=== PATIENT | female | born 1990 | race Two or more races ===

== ENCOUNTER 2016-06-18 13:02 | Emergency (ER) | payer MEDICAID, OTHER ==
[2016-06-18 13:22] VITALS: BP 118/71
--- NOTE | 2016-06-18 13:45 | EDM.PDOC ---
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 She has had some bleeding prior to this but now has heavy bleeding and cramping. Has not had tissue pass that he knows of. Pt is here visiting from [place] and speaks no Uzbek. Truck Driver Helper is through [employer]. Has a lot of cramps at this me. Concerned that it is more blood than she expected. Symptom Onset Date: 06/17/16 Timing/Duration: Reports: Day(s): Quality: Reports: other (cramping) Severity: severe Improves with: Reports: None Associated Symptoms: Reports: vaginal bleeding, vaginal clots, large amount. Denies: vaginal tissue - Related Data Allergies/ADRs: Allergies Allergy/AdvReac Type Severity Reaction Status Date / Time No Known Allergies Allergy Verified 06/18/16 13:29 Home Meds: Home Meds Pnv No.122/Iron/Folic Acid [ Multi Tablet] 1 tab PO DAILY 06/18/16 [ History] Past Medical History - Past Health History Medical/Surgical History: Denies Medical/Surgical History Social & Family History - Tobacco Use Smoking Status *Q: Never Smoker ED ROS GENERAL - Review of Systems Review Of Systems: See Below Constitutional: Denies: fever, chills Respiratory: Denies: shortness of breath Cardiovascular: Denies: Chest pain GI/Abdominal: Reports: Abdominal pain : Reports: other (see HPI) Musculoskeletal: Reports: no symptoms Skin: Denies: rash Neurological: Denies: dizziness, headache Psychiatric: Denies: Anxiety ED EXAM - Physical Exam Exam: See Below Exam Limited By: No limitations General Appearance: alert, moderate distress Head: atraumatic, normocephalic Neck: normal inspection, supple, full range of motion Respiratory/Chest: no respiratory distress, lungs clear, normal breath sounds Cardiovascular: regular rate, rhythm, no edema, no murmur GI/Abdominal: normal bowel sounds, soft, non tender (Female) Exam: Other (pelvic exam is not done due to the amount of blood present and we will be performing vaginal US.) Back Exam: normal inspection Extremities: normal inspection, normal range of motion, no pedal edema Neurological: alert, oriented Psychiatric: normal affect Skin Exam: Warm, Dry Course - Vital Signs Last Recorded V/S: Last Vital Signs Temp 97.3 F 06/18/16 13:11 Pulse 102 H 06/18/16 13:11 Resp 18 06/18/16 13:11 BP 118/71 06/18/16 13:11 Pulse Ox 97 06/18/16 13:11 - Orders/Labs/Meds Labs: Laboratory Tests 06/18/16 06/18/16 Range/Units 14:14 14:14 WBC 9.9 (5.0-10.0) 10^3/uL RBC 4.01 (4.00-5.50) 10^6/uL Hgb 11.9 L (12.0-16.0) g/dL Hct 36.9 L (37.0-47.0) % MCV 92.0 (82.0-94.0) fL MCH 29.7 (27.0-32.0) pg MCHC 32.2 L (33.0-38.0) g/dL RDW Coeff of Raine 13.9 (11.0-15.0) % Plt Count 298 (150-400) 10^3/uL Neut % (Auto) 77.3 (35-85) % Lymph % (Auto) 16.5 (10-55) % [place] % (Auto) 5.2 (0-16) % Eos % (Auto) 0.9 (0-5) % Baso % (Auto) 0.1 (0-3) % Neut # 7.62 H (1.80-7.00) 10^3/uL Lymph # 1.63 (1.00-4.80) 10^3/uL [place] # 0.51 (0.00-0.80) 10^3/uL Eos # 0.09 (0.00-0.45) 10^3/uL Baso # 0.01 10^3/uL Sodium 141 (136-145) mEq/L Potassium 3.9 (3.5-5.0) mEq/L Chloride 106 (98-106) mEq/L Carbon Dioxide 28 (21-32) mmol/L BUN 9 (7-18) mg/dL Creatinine 0.7 (0.6-1.0) mg/dL Est Cr Clr Drug Dosing 95.48 mL/min Estimated GFR (MDRD) > 60 (>=60) mL/min Glucose 155 H (75-99) mg/dL Calcium 8.7 (8.4-10.1) mg/dL Meds: Medications Discontinued Medications Generic Name Dose Route Start Last Admin Trade Name Selena PRN Reason Stop Dose Admin Ketorolac Tromethamine 60 mg 06/18/16 14:59 06/18/16 15:05 Toradol IM 06/18/16 15:00 60 mg ONETIME ONE Administration Ketorolac Tromethamine Confirm 06/18/16 14:52 Toradol Administered 06/18/16 14:53 Dose 60 mg .ROUTE .STK-MED ONE - Re-Assessments/Exams Free Text/Narrative Re-Assessment/Exam: 06/18/16 15:00 In to discuss the results of the Ultrasound. Cervix is now open and products of conception are passing through. Explained that she would have cramps and that the pain meds would help but that it would take time. does voice understanding and relays it to the pt. Departure - Departure Time of Disposition: 15:02 Disposition: Home, Self-Care 01 Condition: good Clinical Impression: Complete Referrals: PCP,None [Primary Care Provider] - Forms: ED Department Discharge Additional Instructions: [place] 5/325 mg - 1-2 tabs every 4 hours as needed for pain and cramps Recheck if any new concerns or if bleeding becomes severe Expect some tissue to pass for the next 24 hours and then bleeding should decrease. Follow up with TECHNICAL SUPPORT DIRECTOR when returning home. - Problem List & Annotations (1) Complete SNOMED Code(s): 294851007 Code(s): O03.9 - COMPLETE OR UNSP SPONTANEOUS WITHOUT COMPLICATION Status: Acute Priority: High - Problem List Review Problem List Initiated/Reviewed/Updated: Yes
[2016-06-18 14:29] LABS: CHLORIDE,CL 106 mEq/L (98-106); SODIUM,NA 141 mEq/L (136-145)
[2016-06-18] MEDS ORDERED: Ketorolac 60 MG/2 ML SDV ONE (14:52)
[2016-06-18] MEDS ORDERED: Ketorolac 60 MG/2 ML SDV IM ONE (14:59)
== END 2016-06-18 15:15 | disposition home or self-care (01) ==
LOC: CC.ED 13:02
DX: O03.9 Complete or unspecified spontaneous abortion without complication (principal)
CPT/HCPCS: 36415; 76830; 80048; 85025; 96372; 99284; J1885

== ENCOUNTER 2016-09-19 14:14 | Emergency (ER) | payer MEDICAID, OTHER ==
[2016-09-19 14:22] VITALS: BP 140/84
== END 2016-09-19 14:45 | disposition other institution (70) ==
LOC: CC.ED 14:14
DX: Z53.21 Procedure and treatment not carried out due to patient leaving prior to being seen by health care provider (principal)

== ENCOUNTER 2017-10-10 19:57 | Emergency (ER) | payer BC ==
[2017-10-10 20:18] VITALS: BP 131/79
--- NOTE | 2017-10-10 20:59 | EDM.PDOC ---
ED HPI GENERAL MEDICAL PROBLEM - General Chief Complaint: Head Injury Stated Complaint: fall and hit head Time Seen by Provider: 10/10/17 20:00 Source of Information: Reports: Patient History Limitations: Reports: Language Barrier (Reeling Machine Operator used with [employer] ) - History of Present Illness INITIAL COMMENTS - FREE TEXT/NARRATIVE: This patient is a 27 year old female that presents to the ER via EMS. Patient arrives and floor tiling professional is used via [employer]. The patient reports she was in the pool, came inside and was giving the children a bath. She reports she was standing, then the next thing she remembers was laying on the carpet in the bedroom. The patient report having headache, neck pain, left sided chest pain, nausea, lightheaded. The patient denies v, d, f, cough, congestion, drainage, soa, abd pain, urinary/bowel changes. She reports LMP 2 days ago. Patient is awake. She is alert and oriented. I recommend head ct, labs, urine, ekg since we do not now cause of the fall or she had syncope. Onset: Today Onset Date: 10/10/17 Location: Reports: Head, Neck, Chest Quality: Reports: Ache Severity: Mild Improves with: Reports: None Worsens with: Reports: None Associated Symptoms: Reports: Chest Pain, Headaches, Nausea/Vomiting. Denies: Confusion, Cough, cough w sputum, Diaphoresis, Fever/Chills, Loss of Appetite, Malaise, Rash, Seizure, Shortness of Breath, Weakness - Related Data Allergies Allergy/AdvReac Type Severity Reaction Status Date / Time turkey Allergy Cannot Verified 09/19/16 14:23 Remember ham Allergy Cannot Uncoded 09/19/16 14:23 Remember Home Meds: Home Meds . 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 One child was born premature. She also had a seizure while she was with her last and preclampsia. Neurological History: Reports: Seizure - Past Surgical History Female Surgical History: Reports: Section ED ROS GENERAL - Review of Systems Review Of Systems: See Below Constitutional: Reports: No Symptoms HEENT: Reports: No Symptoms Respiratory: Reports: No Symptoms Cardiovascular: Reports: Lightheadedness Endocrine: Reports: No Symptoms GI/Abdominal: Reports: Nausea : Reports: No Symptoms Musculoskeletal: Reports: Neck Pain, Other (left chest pain) Skin: Reports: No Symptoms Neurological: Reports: Headache Psychiatric: Reports: No Symptoms Hematologic/Lymphatic: Reports: No Symptoms Immunologic: Reports: No Symptoms ED EXAM, HEAD INJURY - Physical Exam Exam: See Below Exam Limited By: Language Barrier (Reeling Machine Operator used for translation.) General Appearance: Alert, WD/WN, No Apparent Distress Head: Atraumatic, Normocephalic. No: Scalp Lacerations, Scalp Swelling, Scalp Abrasions, Scalp Ecchymosis, Scalp Hematoma, Scalp Tenderness, Active Bleeding, Facial Abrasions, Facial Ecchymosis, Facial Lacerations, Facial Swelling, Sinus Tenderness, Facial Tenderness, Raccoon Eyes Nexus Criteria: No: Posterior, Midline Cervical Tenderness, Evidence of Intoxication, Altered Level of Consciousness, Focal Neurological Deficit, Painful Distraction Injuries Eyes: Bilateral Eye: EOMI, Normal Inspection, PERRL Ears: Normal External Exam, Normal Canal, Hearing Grossly Normal, Normal TMs Nose: Normal Inspection, Normal Mucousa, No Blood Throat/Mouth: Normal Inspection, Normal Lips, Normal Teeth, Normal Gums, Normal Oropharynx, Normal Voice, No Airway Compromise Neck: Non-Tender, Full Range of Motion, Normal Alignment, Normal Inspection Respiratory: No Respiratory Distress, Lungs Clear, Normal Breath Sounds, No Accessory Muscle Use, Other (left atnerior upper chest wall tenderness mild on palpation. ). No: Respiratory Distress, Decreased Breath Sounds, Wheezing, Accessory Muscle Use, Retractions, Splinting Cardiovascular: Normal Peripheral Pulses, Regular Rate, Rhythm, No Edema, No Gallop, No JVD, No Murmur, No Rub GI/Abdominal Exam: Normal Bowel Sounds, Soft, Non-Tender, No Organomegaly, No Distention, No Abnormal Bruit, No Mass, Pelvis Stable (Female) Exam: Deferred Rectal (Female) Exam: Deferred Back Exam: Normal Inspection, Full Range of Motion. No: CVA Tenderness (L), CVA Tenderness (R), Decreased Range of Motion, Muscle Spasm, Paraspinal Tenderness, Vertebral Tenderness Extremities: Normal Inspection, Normal Range of Motion, Non-Tender, No Pedal Edema, Normal Capillary Refill Neurologic: family nurse II-XII nml As Tested, No Motor/Sensory Deficits, Alert, Normal Mood/Affect, Oriented x 3 Skin: Normal Color, Warm/Dry - [place] Coma Score Best Eye Response ([place]): (4) Open Spontaneously Best Verbal Response ([place]): (5) Oriented Best Motor Response ([place]): (6) Obeys Commands Course - Vital Signs Last Recorded V/S: Last Vital Signs Temp 97.0 F 10/10/17 20:00 Pulse 94 10/10/17 20:00 Resp 20 10/10/17 20:00 BP 131/79 10/10/17 20:00 Pulse Ox 97 10/10/17 20:00 - Re-Assessments/Exams Free Text/Narrative Re-Assessment/Exam: 10/10/17 20:59 After I had discussed with the patient the testing I would order. She now reports that she feels better and would like to go home. She reports that she does not have insurance and would like to leave now. I educated the patient about financial assistance and how she could talk to someone else about this on Thursday. The patient again says she feels much better and would like to go home. The patient is alert and oriented. The patient is educated about my recommendations for care, but still would like to go home. I educated the patient about possible outcomes like head bleeds, paralysis, may result. She understands and would like to leave AMA. Myself, Jerrica Valerio RN, patient significant other, patient, patient two children, in the room. The floor tiling professional also witness and translated all of this to the patient. We do not have AMA forms available. Patient left AMA. Departure - Departure Time of Disposition: 20:58 Disposition: Against Medical Advice 07 Condition: Undetermined Clinical Impression: Left against medical advice - Discharge Information Forms: ED Department Discharge Additional Instructions: Return as needed - Assessment/Plan Plan: PLEASE SEE RN NOTE FOR PFSH.
== END 2017-10-10 20:30 | disposition left against medical advice (07) ==
LOC: CC.ED 19:57
DX: Z53.20 Procedure and treatment not carried out because of patient's decision for unspecified reasons (principal)
CPT/HCPCS: 99283

== ENCOUNTER 2018-05-08 18:07 | Emergency (ER) | payer BC ==
[2018-05-08] MEDS ORDERED: Ciprofloxacin 500 MG Tab PO ONE (18:08)
[2018-05-08] MEDS ORDERED: Ondansetron 4 MG Tab.DIS PO ONE (18:08)
[2018-05-08] MEDS ORDERED: Sodium Chloride 0.9% 1,000 ML IV ONE (18:23)
[2018-05-08] MEDS ORDERED: Ondansetron 4 MG/2 ML SDV IVPUSH STA (18:24)
[2018-05-08 18:48] LABS: CHLORIDE,CL 102 mEq/L (98-106); SODIUM,NA 140 mEq/L (136-145)
[2018-05-08] MEDS ORDERED: cefTRIAXone 2 GM Vial IVPUSH ONE (19:09)
[2018-05-08] MEDS ORDERED: Ketorolac 30 MG/ML SDV IVPUSH PRN (19:14)
--- NOTE | 2018-05-08 19:32 | EDM.PDOC ---
ED HPI GENERAL MEDICAL PROBLEM - General Chief Complaint: Abdominal Pain Stated Complaint: ABD PAIN, PAIN WITH URINATION, N/V/D Time Seen by Provider: 05/08/18 18:55 Source of Information: Reports: Patient History Limitations: Reports: No Limitations - History of Present Illness INITIAL COMMENTS - FREE TEXT/NARRATIVE: Bettye is a 27 year old female who presents to the ED with c/o bilateral flank pain, fever, and burning with urination. She reports she was in [place] visiting family the past month. Reports she was sick while still in [place] and was seen there with c/o abdominal pain, diarrhea, and vomiting. She reports she has been taking a medication that appears to be ciprofloxacin from [place]. Reports initially she was having lots of diarrhea and vomiting, but this has improved the past few days. Reports the past 10 days she has had burning with urination and urinary frequency. Now reports she has gotten bilateral flan pain, R>L. Has had fevers at home and generalized malaise . History limited due to language barrier. Young son available for translation and is able to provide adequate translation. Onset Date: 04/29/18 Duration: Getting Worse Location: Reports: Abdomen (bilateral flank) Quality: Reports: Ache Severity: Severe Improves with: Reports: None Worsens with: Reports: None Associated Symptoms: Reports: Cough, Fever/Chills, Headaches, Loss of Appetite, Malaise, Nausea/Vomiting, Weakness. Denies: Confusion, Chest Pain, cough w sputum, Diaphoresis, Rash, Seizure, Shortness of Breath, Syncope Treatments SCREENING SPECIALIST: Reports: Acetaminophen, Other (see below) (Medications from [place]- ciprofloxacin) Abdominal Pain Score (Numeric/FACES): 8 - Related Data Allergies Allergy/AdvReac Type Severity Reaction Status Date / Time turkey Allergy Cannot Verified 05/08/18 18:16 Remember ham Allergy Cannot Uncoded 05/08/18 18:16 Remember Home Meds: Home Meds Ciprofloxacin [Ciprofloxacin HCl] 500 mg PO BID 9 Days #18 tab 05/08/18 [Rx] Ondansetron [Ondansetron ODT] 8 mg PO Q8H PRN #20 tab.rapdis 05/08/18 [Rx] Ciprofloxacin HCl [Cipro] 500 mg PO TID 05/09/18 [History] Past Medical History - Past Health History Medical/Surgical History: Denies Medical/Surgical History 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 One child was born premature. She also had a seizure while she was with her last and preclampsia. Neurological History: Reports: Seizure - Past Surgical History Female Surgical History: Reports: Section Social & Family History - Tobacco Use Smoking Status *Q: Never Smoker - Caffeine Use Caffeine Use: Reports: None ED ROS GENERAL - Review of Systems Review Of Systems: See Below Constitutional: Reports: Fever, Chills, Malaise, Weakness, Fatigue, Decreased Appetite HEENT: Reports: No Symptoms Respiratory: Reports: Cough. Denies: Shortness of Breath, Wheezing, Pleuritic Chest Pain, Sputum Cardiovascular: Reports: No Symptoms Endocrine: Reports: Fatigue GI/Abdominal: Reports: Abdominal Pain, Diarrhea, Decreased Appetite, Nausea, Vomiting. Denies: Black Stool, Bloody Stool : Reports: Dysuria, Flank Pain, Frequency, Urgency. Denies: Hematuria Musculoskeletal: Reports: No Symptoms Skin: Reports: No Symptoms Neurological: Reports: Headache, Weakness Psychiatric: Reports: No Symptoms Hematologic/Lymphatic: Reports: No Symptoms Immunologic: Reports: No Symptoms ED EXAM, RENAL/ - Physical Exam Exam: See Below Exam Limited By: Language Barrier General Appearance: Alert, WD/WN, Mild Distress Eye Exam: Bilateral Eye: EOMI, Normal Fundi, Normal Inspection, PERRL Throat/Mouth: Normal Inspection, Normal Lips, Normal Teeth, Normal Gums, Normal Oropharynx, Normal Voice, No Airway Compromise Head: Atraumatic, Normocephalic Neck: Normal Inspection, Supple, Non-Tender, Full Range of Motion Respiratory/Chest: No Respiratory Distress, Lungs Clear, Normal Breath Sounds, No Accessory Muscle Use, Chest Non-Tender Cardiovascular: Normal Peripheral Pulses, Regular Rate, Rhythm, No Edema, No Gallop, No JVD, No Murmur, No Rub GI/Abdominal: Normal Bowel Sounds, Soft, No Organomegaly, No Distention, No Mass , Tender (generalized) Back Exam: Normal Inspection, Full Range of Motion, CVA Tenderness (L), CVA Tenderness (R) Extremities: Normal Inspection, Normal Range of Motion, Non-Tender, Normal Capillary Refill, No Pedal Edema Neurological: Alert, Oriented, CN II-XII Intact, Normal Cognition, Normal Gait, Normal Reflexes, No Motor/Sensory Deficits Psychiatric: Normal Affect, Normal Mood Skin Exam: Warm, Dry, Intact, Normal Color, No Rash Lymphatic: No Adenopathy Course - Vital Signs Last Recorded V/S: Last Vital Signs Temp 99.5 F 05/08/18 21:20 Pulse 99 05/08/18 21:20 Resp 20 05/08/18 21:20 BP 102/58 L 05/08/18 21:20 Pulse Ox 98 05/08/18 21:20 - Orders/Labs/Meds Orders: Active Orders 24 hr Category Date Time Status CULTURE URINE [RM] Routine Lab 05/08/18 18:43 Results Labs: Laboratory Tests 05/08/18 05/08/18 05/08/18 Range/Units 18:23 18:23 18:23 WBC 10.8 H (5.0-10.0) 10^3/uL RBC 4.09 (4.00-5.50) 10^6/uL Hgb 11.8 L (12.0-16.0) g/dL Hct 37.8 (37.0-47.0) % MCV 92.4 (82.0-94.0) fL MCH 28.9 (27.0-32.0) pg MCHC 31.2 L (33.0-38.0) g/dL RDW Coeff of Raine 14.6 (11.0-15.0) % Plt Count 249 (150-400) 10^3/uL Neut % (Auto) 79.4 (35-85) % Lymph % (Auto) 10.2 (10-55) % [place] % (Auto) 10.0 (0-16) % Eos % (Auto) 0.3 (0-5) % Baso % (Auto) 0.1 (0-3) % Neut # (Auto) 8.56 H (1.80-7.00) 10^3/uL Lymph # (Auto) 1.10 (1.00-4.80) 10^3/uL [place] # (Auto) 1.08 H (0.00-0.80) 10^3/uL Eos # (Auto) 0.03 (0.00-0.45) 10^3/uL Baso # (Auto) 0.01 10^3/uL Sodium 140 (136-145) mEq/L Potassium 4.0 (3.5-5.0) mEq/L Chloride 102 (98-106) mEq/L Carbon Dioxide 30 (21-32) mmol/L BUN 6 L (7-18) mg/dL Creatinine 0.6 (0.6-1.0) mg/dL Est Cr Clr Drug Dosing 104.40 mL/min Estimated GFR (MDRD) > 60 (>=60) mL/min Glucose 94 (75-99) mg/dL Calcium 8.8 (8.4-10.1) mg/dL Total Bilirubin 0.6 (0.0-1.0) mg/dL AST 17 (15-37) U/L ALT 25 (12-78) U/L Alkaline Phosphatase 70 (46-116) U/L C-Reactive Protein 27.9 H (0.2-0.8) mg/dL Total Protein 7.5 (6.4-8.2) g/dL Albumin 3.4 (3.4-5.0) g/dL Urine Color [place] (YELLOW) Urine Appearance Cloudy (CLEAR) Urine pH 6.0 (4.5-8.0) Ur Specific [place] 1.010 (1.003-1.020) Urine Protein 100 H (NEGATIVE) mg/dL Urine Glucose (UA) 250 H (NEGATIVE) mg/dL Urine Ketones Trace H (NEGATIVE) mg/dL Urine Occult Blood Trace-intact H (NEGATIVE) Urine Nitrite Positive H (NEGATIVE) Urine Bilirubin Negative (NEGATIVE) Urine Urobilinogen 2.0 H (0.2-1.0) EU/dL Ur Leukocyte Esterase Large H (NEGATIVE) Urine RBC Not seen (0-5) /HPF Urine WBC 50-75 H (0-5) /HPF Ur Squamous Epith Cells Few H (NOT SEEN) /HPF Urine Bacteria Few H (NOT SEEN) /HPF Urinalysis Comment Meds: Medications Discontinued Medications Generic Name Dose Route Start Last Admin Trade Name Freq PRN Reason Stop Dose Admin Acetaminophen 1,000 mg 05/08/18 19:50 05/08/18 19:54 Tylenol Extra Strength PO 05/08/18 19:51 1,000 mg ONETIME ONE Administration Ceftriaxone Sodium 2 gm 05/08/18 19:09 05/08/18 19:12 Rocephin IVPUSH 05/08/18 19:10 2 gm ONETIME ONE Administration Ciprofloxacin 1 packet 05/08/18 21:32 05/08/18 22:04 Take Home: Ciprofloxacin 500 Mg, 2 Tab Pack PO 05/08/18 21:33 1 packet ONETIME ONE Administration Sodium Chloride 1,000 mls @ 999 mls/hr 05/08/18 18:23 05/08/18 18:47 Normal Saline IV 05/08/18 19:23 999 mls/hr .BOLUS ONE Administration Sodium Chloride 1,000 mls @ 250 mls/hr 05/08/18 20:00 05/08/18 19:55 Normal Saline IV 250 mls/hr ASDIRECTED RAJ Administration Ketorolac Tromethamine 30 mg 05/08/18 19:14 05/08/18 19:24 Toradol IVPUSH 05/13/18 19:14 30 mg Q6H PRN Administration Headache Ondansetron HCl 4 mg 05/08/18 18:24 05/08/18 18:47 Zofran IVPUSH 05/08/18 18:25 4 mg NOW STA Administration Ondansetron HCl 2 packet 05/08/18 22:23 05/08/18 22:43 Take Home: Ondansetron Odt 4 Mg, 2 Tab Pack PO 05/08/18 22:24 2 packet ONETIME ONE Administration Prochlorperazine Maleate 10 mg 05/08/18 21:32 05/08/18 21:55 Compazine PO 05/08/18 21:33 10 mg ONETIME ONE Administration - Re-Assessments/Exams Free Text/Narrative Re-Assessment/Exam: Patient initially given 1 L NS bolus, 2 g ceftriaxone, and 4 mg zofran. Continues to c/o headache. Was given 30 mg Toradol IV. Did report some improvement in pain, but headache continued. Did have low grade fever. Was then given Tylenol. Did opt to keep in extended ED for additional IV fluids as patient remained tachycardic. She had some continued nausea, so compazine was ordered. Addition liter of NS infused. Patient reported after this she was feeling much better. Reported her pain had improved. Pulse normal. Nausea improved. Discussed discharge recommendations, with use of son as detective homicide squad. Patient, , and son appeared to understand instructions. Advised close follow up Thursday if symptoms persist. They verbalized understanding and were agreeable to discharge home. Departure - Departure Time of Disposition: 21:31 Disposition: Home, Self-Care 01 Condition: Fair Clinical Impression: Pyelonephritis - Discharge Information *PRESCRIPTION DRUG MONITORING PROGRAM REVIEWED*: Not Applicable *COPY OF PRESCRIPTION DRUG MONITORING REPORT IN PATIENT KRYSTIAN: Not Applicable Prescriptions: Ciprofloxacin [Ciprofloxacin HCl] 500 mg PO BID 9 Days #18 tab Ondansetron [Ondansetron ODT] 8 mg PO Q8H PRN #20 tab.rapdis PRN Reason: Nausea Instructions: Pyelonephritis, Adult, [id number] Referrals: PCP,None [Primary Care Provider] - Forms: ED Department Discharge Additional Instructions: 1) Ciprofloxacin 500 mg orally every 12 hours x 10 days. Sent home with 2 pills. Remainder of dose at [facility]. STOP PRESCRIPTIONS FROM [facility]. 2) Zofran (ondansetron) every 8 hours as needed for nausea/vomiting 3) Alternate Tylenol and ibuprofen every 3 hours as needed for headache/pain 4) Heat to affected area as needed for comfort 5) Rest and push fluids 6) Follow up in clinic for recheck Thursday if symptoms are not improving - My Orders Last 24 Hours: My Active Orders 05/08/18 18:43 CULTURE URINE [RM] Routine - Assessment/Plan Last 24 Hours: My Active Orders 05/08/18 18:43 CULTURE URINE [RM] Routine
[2018-05-08] MEDS ORDERED: Acetaminophen 500 MG Tab PO ONE (19:50)
[2018-05-08] MEDS ORDERED: Sodium Chloride 0.9% 1,000 ML IV SCH (20:00)
[2018-05-08] MEDS ORDERED: Prochlorperazine 10 MG Tab PO ONE (21:32)
[2018-05-08] MEDS ORDERED: Take Home: Ciprofloxacin 500 MG Tab, 2 Tab Pack PO ONE (21:32)
[2018-05-08 21:56] VITALS: BP 102/58
[2018-05-08] MEDS ORDERED: Take Home: Ondansetron 4 MG Tab.DIS, 2 Tab Pack PO ONE (22:23)
== END 2018-05-08 22:55 | disposition home or self-care (01) ==
LOC: CC.ED 18:07
DX: N12 Tubulo-interstitial nephritis, not specified as acute or chronic (principal); Z91.018 Allergy to other foods
CPT/HCPCS: 36415; 80053; 81001; 85025; 86140; 87086; 87088; 87186; 96361; 96374; 96375; 99284; A9270-GY; J0696; J1885; J2405; J7030; Q0164

== ENCOUNTER 2019-07-21 13:06 | Observation (INO) | payer SELFPAY ==
[2019-07-21 14:13] LABS: CHLORIDE,CL 102 mEq/L (98-106); SODIUM,NA 139 mEq/L (136-145)
[2019-07-21] MEDS ORDERED: Barium Sulfate Oral Susp 450 ML Bottle PO ONE (14:41)
[2019-07-21] MEDS ORDERED: Iopamidol 755 Mg/ML 100 ML Bottle IVPUSH ONE (14:41)
[2019-07-21] MEDS ORDERED: Sodium Chloride 0.9% 1,000 ML IV ONE (14:45)
[2019-07-21] MEDS ORDERED: Ketorolac 30 MG/ML SDV IM PRN (16:25)
[2019-07-21] MEDS: Sodium Chloride 0.9% 1,000 ML IV SCH (17:07)
[2019-07-21] MEDS: cefTRIAXone 1 GM Vial IVPUSH SCH (17:08)
[2019-07-21] MEDS: Ondansetron 4 MG/2 ML SDV IV PRN (17:08)
[2019-07-21] MEDS: Morphine 2 MG/ML Syringe IVPUSH PRN (18:24)
[2019-07-21] MEDS: Ibuprofen 200 MG Tab PO PRN (20:12)
[2019-07-22] MEDS: Sodium Chloride 0.9% 1,000 ML IV SCH ×3 (01:11→23:19)
[2019-07-22] MEDS: Ondansetron 4 MG/2 ML SDV IV PRN ×3 (01:11→21:04)
[2019-07-22] MEDS: Morphine 2 MG/ML Syringe IVPUSH PRN (01:12)
[2019-07-22] MEDS: Acetaminophen 325 MG Tab PO PRN ×2 (06:55→16:16)
[2019-07-22] MEDS ORDERED: Ketorolac 30 MG/ML SDV IVPUSH PRN (08:56)
[2019-07-22] MEDS: Ibuprofen 200 MG Tab PO PRN ×2 (09:19→21:04)
--- NOTE | 2019-07-22 14:39 | PN ---
DATE: 07/22/2019 Bettye has done well since being here, feels much better. She has had a T-max of 99.7. She is no longer tachycardic. She is putting out adequate volumes of urine. We are still waiting on urine culture. Unfortunately, her UA was probably a little disguise given her Cipro use leading up to our visit. Nevertheless, she looks better. White count and CRP are down today. Her creatinine remains at 1.2. I did do an interview with her son on the phone. She feels better other than she has a headache today which is I think, a chronic issue for her. PHYSICAL EXAMINATION: GENERAL: On exam, she is pleasant and cooperative, does not appear in distress. HEENT: Benign. NECK: Supple. LUNGS: Lung sounds are clear. CARDIAC: Tones are regular. She continues with left flank pain but mild, and none on the right. ABDOMEN: Otherwise benign. ASSESSMENT: PYELONEPHRITIS. P: I did review the CT scan report. She has what appears to be bilateral streakiness of both kidneys consistent with a pyelo and no other gross abnormalities. We are going to treat her with some further fluids and IV antibiotics today and if she is doing well and CRP continues to trend down, home tomorrow. I would like to have a urine culture before discharge and she understands. CLEMENTINE/ALMA /[id number]
[2019-07-22] MEDS: cefTRIAXone 1 GM Vial IVPUSH SCH (16:55)
[2019-07-23 07:41] LABS: CHLORIDE,CL 104 mEq/L (98-106); SODIUM,NA 140 mEq/L (136-145)
[2019-07-23] MEDS ORDERED: Ondansetron 4 MG Tab.DIS PO ONE ×2 (09:00→15:24)
--- NOTE | 2019-07-23 09:54 | PCM.PN ---
- General Info Date of Service: 07/23/19 Functional Status: Reports: Pain Controlled (Abd pain, but improved since yesterday.), Tolerating Diet Pain Score: 3 - Review of Systems General: Reports: No Symptoms. Denies: Fever HEENT: Reports: No Symptoms Pulmonary: Reports: No Symptoms Cardiovascular: Reports: No Symptoms Gastrointestinal: Reports: Abdominal Pain (but, improved from yesterday.), Nausea. Denies: Constipation, Diarrhea, Vomiting Genitourinary: Reports: No Symptoms. Denies: Dysuria, Burning, Incontinence, Retention, Flank Pain Musculoskeletal: Reports: No Symptoms Skin: Reports: No Symptoms Neurological: Reports: No Symptoms Psychiatric: Reports: No Symptoms - Patient Data Vitals - Most Recent: Last Vital Signs Temp 99.1 F 07/23/19 08:00 Pulse 102 H 07/23/19 08:00 Resp 20 07/23/19 08:00 BP 120/79 07/23/19 08:00 Pulse Ox 100 07/23/19 08:00 Weight - Most Recent: 194 lb I&O - Last 24 Hours: Intake & Output 07/22/19 07/23/19 07/23/19 22:59 06:59 14:59 Intake Total 2545 1500 Output Total 2300 500 Balance 245 1000 Lab Results Last 24 Hours: Laboratory Results - last 24 hr 07/23/19 07/23/19 Range/Units 07:05 07:05 WBC 6.8 (5.0-10.0) 10^3/uL RBC 3.51 L (4.00-5.50) 10^6/uL Hgb 10.1 L (12.0-16.0) g/dL Hct 32.6 L (37.0-47.0) % MCV 92.9 (82.0-94.0) fL MCH 28.8 (27.0-32.0) pg MCHC 31.0 L (33.0-38.0) g/dL RDW Coeff of Raine 14.4 (11.0-15.0) % Plt Count 278 (150-400) 10^3/uL Neut % (Auto) 64.4 (35-85) % Lymph % (Auto) 25.4 (10-55) % [place] % (Auto) 8.7 (0-16) % Eos % (Auto) 1.2 (0-5) % Baso % (Auto) 0.3 (0-3) % Neut # (Auto) 4.38 (1.80-7.00) 10^3/uL Lymph # (Auto) 1.73 (1.00-4.80) 10^3/uL [place] # (Auto) 0.59 (0.00-0.80) 10^3/uL Eos # (Auto) 0.08 (0.00-0.45) 10^3/uL Baso # (Auto) 0.02 10^3/uL Sodium 140 (136-145) mEq/L Potassium 4.0 (3.5-5.0) mEq/L Chloride 104 (98-106) mEq/L Carbon Dioxide 29 (21-32) mmol/L BUN 6 L (7-18) mg/dL Creatinine 0.9 (0.6-1.0) mg/dL Est Cr Clr Drug Dosing 78.93 mL/min Estimated GFR (MDRD) > 60 (>=60) mL/min Glucose 107 H (75-99) mg/dL Calcium 8.1 L (8.4-10.1) mg/dL C-Reactive Protein 6.3 H (0.2-0.8) mg/dL Jose Results Last 24 Hours: Microbiology 07/21/19 15:28 Urine Culture - Final Urine, Voided 07/21/19 13:52 Genital Culture - Preliminary Vagina Med Orders - Current: Current Medications Acetaminophen (Tylenol) 650 mg PO Q4H PRN PRN Reason: Pain (Mild 1-3)/fever Last Admin: 07/22/19 16:16 Dose: 650 mg Ceftriaxone Sodium (Rocephin) 1 gm IVPUSH Q24H [facility] Last Admin: 07/22/19 16:55 Dose: 1 gm Sodium Chloride (Normal Saline) 1,000 mls @ 75 mls/hr IV ASDIRECTED [facility] Last Admin: 07/22/19 23:19 Dose: 75 mls/hr Ibuprofen (Motrin) 400 mg PO Q6H PRN PRN Reason: Pain (mild 1-3) Last Admin: 07/22/19 21:04 Dose: 400 mg Ketorolac Tromethamine (Toradol) 30 mg IVPUSH Q6H PRN PRN Reason: Pain (moderate 4-6) Morphine Sulfate (Morphine) 2 mg IVPUSH Q2H PRN PRN Reason: Pain (severe 7-10) Last Admin: 07/22/19 01:12 Dose: 2 mg Ondansetron HCl (Zofran) 8 mg IV Q6H PRN PRN Reason: Nausea/Vomiting Last Admin: 07/22/19 21:04 Dose: 8 mg Discontinued Medications Barium Sulfate (Readi-Cat 2) 900 ml PO ONETIME ONE Stop: 07/21/19 14:42 Last Admin: 07/21/19 16:14 Dose: 900 ml Sodium Chloride (Normal Saline) 1,000 mls @ 1,000 mls/hr IV ONETIME ONE Stop: 07/21/19 15:44 Last Admin: 07/21/19 14:54 Dose: 1,000 mls/hr Iopamidol (Isovue-370 (76%)) 100 ml IVPUSH ONETIME ONE Stop: 07/21/19 14:42 Last Admin: 07/21/19 16:14 Dose: 100 ml Ketorolac Tromethamine (Toradol) 30 mg IM Q6H PRN PRN Reason: Pain (moderate 4-6) Last Admin: 07/21/19 17:09 Dose: 30 mg Ondansetron HCl (Zofran Odt) 4 mg PO ONETIME ONE Stop: 07/23/19 09:01 Last Admin: 07/23/19 09:12 Dose: 4 mg - Exam General: Alert, Oriented, Cooperative Neck: Supple, Trachea Midline, No JVD Lungs: Clear to Auscultation, Normal Respiratory Effort Cardiovascular: Regular Rate, Regular Rhythm, No Murmurs GI/Abdominal Exam: Normal Bowel Sounds, Soft, No Organomegaly, No Distention, Pelvis Stable, Tender (RUQ, RLQ mild. ) Back Exam: Normal Inspection, Full Range of Motion. No: CVA Tenderness (L), CVA Tenderness (R) Extremities: Normal Inspection, Normal Range of Motion, Non-Tender, No Pedal Edema, Normal Capillary Refill Peripheral Pulses: 2+: Radial (L), Radial (R), Posterior Tibial (L), Posterior Tibial (R) Skin: Warm, Dry, Intact Neurological: No New Focal Deficit, Normal Gait, Normal Speech Psy/Mental Status: Alert, Normal Affect, Normal Mood Sepsis Event Note - Evaluation Sepsis Screening Result: No Definite Risk - Focused Exam Vital Signs: Vital Signs Temp Temp Pulse Resp BP Pulse Ox 07/23/19 08:00 99.1 F 102 H 20 120/79 100 07/23/19 04:00 97.6 F 75 18 111/74 100 07/22/19 23:40 98.9 F 85 18 117/68 100 07/22/19 22:04 98.9 F Date Exam was Performed: 07/23/19 Time Exam was Performed: 14:36 - Problem List Review Problem List Initiated/Reviewed/Updated: Yes - Plan Plan:: 07/23/2019 0946 This patient was admitted for pylonephritis. Patient today reports her pain has improved, she still does have some mild abdominal pain. Patient labs are unremarkable, wbc normal. Her CRP is improving. The patient reports her only complaint is severe nausea. Her son Renato via phone assisted with translation with this patient. The patient reports that she feels like she can go home today if her nausea improves. She denies santo, dizziness,v, d, f, urinary changes. I discussed with the patient giving her ODT Zofran for nausea, then will allow her to try and eat lunch. If her nausea resolves and able to hold food, could discharge later today. She agrees with this plan.
[2019-07-23 12:09] VITALS: BP 107/79; PULSE 68
[2019-07-23] MEDS ORDERED: cefTRIAXone 1 GM Vial IVPUSH SCH (14:30)
--- NOTE | 2019-07-23 14:34 | PCM.DCSUM1 ---
Discharge Summary - Hospital Course HPI Initial Comments: 07/23/2019 1420 This patient ate lunch without issue today. She reports that her nausea is much better. She reports she is ready to go home. I will discharge this patient home today. PLEASE USE THIS NOTE DISCHARGE NOTE HOME. - Discharge Data Discharge Date: 07/23/19 Discharge Disposition: Home, Self-Care 01 Condition: Good - Referral to Home Health Primary Care Physician: Srini Boone MD - Patient Instructions Diet: Usual Diet as Tolerated Activity: As Tolerated Driving: May Drive Today Showering/Bathing: May Shower Notify Provider of: Fever, Increased Pain, Nausea and/or Vomiting Other/Special Instructions: Followup with primary care provider in 3-5 days. Return to the ER for worsening of condition or any emergent concerns. Zofran 4mg 1 pill under tongue as needed for nausea or vomiting #6 take home. Ceftin 500mg 1 pill twice a day Thursday #2 take home. Zofran 4mg under tongue as needed for nausea or vomiting #24 Pharmacy. Cefdinir 300mg 1 pill twice a day for 5 days #10 no refill Pharmacy #2 take home - Discharge Plan *PRESCRIPTION DRUG MONITORING PROGRAM REVIEWED*: Not Applicable *COPY OF PRESCRIPTION DRUG MONITORING REPORT IN PATIENT KRYSTIAN: Not Applicable Prescriptions/Med Rec: Cefdinir [Omnicef] 300 mg PO BID #10 cap Ondansetron [Zofran ODT] 4 mg PO Q6H PRN #24 tab.dis PRN Reason: Nausea/Vomiting Home Medications: Home Meds Cefdinir [Omnicef] 300 mg PO BID #10 cap 07/23/19 [Rx] Ondansetron [Zofran ODT] 4 mg PO Q6H PRN #24 tab.dis 07/23/19 [Rx] Patient Handouts: Pyelonephritis, Adult, [id number] - Discharge Summary/Plan Comment DC Time >30 min.: No - General Info Functional Status: Reports: Pain Controlled, Tolerating Diet - Review of Systems General: Reports: No Symptoms. Denies: Fever Pulmonary: Reports: No Symptoms Cardiovascular: Reports: No Symptoms Gastrointestinal: Reports: No Symptoms. Denies: Nausea, Vomiting Genitourinary: Reports: No Symptoms Musculoskeletal: Reports: No Symptoms Neurological: Reports: No Symptoms - Patient Data Vitals - Most Recent: Last Vital Signs Temp 99.1 F 07/23/19 12:00 Pulse 68 07/23/19 12:00 Resp 16 07/23/19 12:00 BP 107/79 07/23/19 12:00 Pulse Ox 100 07/23/19 12:00 Weight - Most Recent: 194 lb I&O - Last 24 hours: Intake & Output 07/22/19 07/23/19 07/23/19 22:59 06:59 14:59 Intake Total 2545 1500 Output Total 2300 500 Balance 245 1000 Lab Results - Last 24 hrs: Laboratory Results - last 24 hr 07/23/19 07/23/19 Range/Units 07:05 07:05 WBC 6.8 (5.0-10.0) 10^3/uL RBC 3.51 L (4.00-5.50) 10^6/uL Hgb 10.1 L (12.0-16.0) g/dL Hct 32.6 L (37.0-47.0) % MCV 92.9 (82.0-94.0) fL MCH 28.8 (27.0-32.0) pg MCHC 31.0 L (33.0-38.0) g/dL RDW Coeff of Raine 14.4 (11.0-15.0) % Plt Count 278 (150-400) 10^3/uL Neut % (Auto) 64.4 (35-85) % Lymph % (Auto) 25.4 (10-55) % [place] % (Auto) 8.7 (0-16) % Eos % (Auto) 1.2 (0-5) % Baso % (Auto) 0.3 (0-3) % Neut # (Auto) 4.38 (1.80-7.00) 10^3/uL Lymph # (Auto) 1.73 (1.00-4.80) 10^3/uL [place] # (Auto) 0.59 (0.00-0.80) 10^3/uL Eos # (Auto) 0.08 (0.00-0.45) 10^3/uL Baso # (Auto) 0.02 10^3/uL Sodium 140 (136-145) mEq/L Potassium 4.0 (3.5-5.0) mEq/L Chloride 104 (98-106) mEq/L Carbon Dioxide 29 (21-32) mmol/L BUN 6 L (7-18) mg/dL Creatinine 0.9 (0.6-1.0) mg/dL Est Cr Clr Drug Dosing 78.93 mL/min Estimated GFR (MDRD) > 60 (>=60) mL/min Glucose 107 H (75-99) mg/dL Calcium 8.1 L (8.4-10.1) mg/dL C-Reactive Protein 6.3 H (0.2-0.8) mg/dL JAMIE Results - Last 24 hrs: Microbiology 07/21/19 13:52 Genital Culture - Final Vagina 07/21/19 15:28 Urine Culture - Final Urine, Voided Med Orders - Current: Current Medications Acetaminophen (Tylenol) 650 mg PO Q4H PRN PRN Reason: Pain (Mild 1-3)/fever Last Admin: 07/22/19 16:16 Dose: 650 mg Ceftriaxone Sodium (Rocephin) 1 gm IVPUSH Q24H [facility] Last Admin: 07/22/19 16:55 Dose: 1 gm Ibuprofen (Motrin) 400 mg PO Q6H PRN PRN Reason: Pain (mild 1-3) Last Admin: 07/22/19 21:04 Dose: 400 mg Ketorolac Tromethamine (Toradol) 30 mg IVPUSH Q6H PRN PRN Reason: Pain (moderate 4-6) Morphine Sulfate (Morphine) 2 mg IVPUSH Q2H PRN PRN Reason: Pain (severe 7-10) Last Admin: 07/22/19 01:12 Dose: 2 mg Ondansetron HCl (Zofran) 8 mg IV Q6H PRN PRN Reason: Nausea/Vomiting Last Admin: 07/22/19 21:04 Dose: 8 mg Discontinued Medications Barium Sulfate (Readi-Cat 2) 900 ml PO ONETIME ONE Stop: 07/21/19 14:42 Last Admin: 07/21/19 16:14 Dose: 900 ml Sodium Chloride (Normal Saline) 1,000 mls @ 1,000 mls/hr IV ONETIME ONE Stop: 07/21/19 15:44 Last Admin: 07/21/19 14:54 Dose: 1,000 mls/hr Sodium Chloride (Normal Saline) 1,000 mls @ 75 mls/hr IV ASDIRECTED [facility] Last Admin: 07/22/19 23:19 Dose: 75 mls/hr Iopamidol (Isovue-370 (76%)) 100 ml IVPUSH ONETIME ONE Stop: 07/21/19 14:42 Last Admin: 07/21/19 16:14 Dose: 100 ml Ketorolac Tromethamine (Toradol) 30 mg IM Q6H PRN PRN Reason: Pain (moderate 4-6) Last Admin: 07/21/19 17:09 Dose: 30 mg Ondansetron HCl (Zofran Odt) 4 mg PO ONETIME ONE Stop: 07/23/19 09:01 Last Admin: 07/23/19 09:12 Dose: 4 mg - Exam General: Reports: Alert, Oriented, Cooperative Lungs: Reports: Clear to Auscultation, Normal Respiratory Effort Cardiovascular: Reports: Regular Rate, Regular Rhythm GI/Abdominal Exam: Soft, Non-Tender Skin: Reports: Warm, Dry Psy/Mental Status: Reports: Alert, Normal Affect, Normal Mood
[2019-07-23] MEDS ORDERED: Take Home: Ondansetron 4 MG Tab.DIS, 2 Tab Pack PO ONE (14:37)
[2019-07-23] MEDS ORDERED: Cefuroxime 250 MG Tab PO STA (14:39)
[2019-07-23] MEDS ORDERED: Take Home: Cefuroxime 250 MG Tab, 2 Tab Pack PO STA (15:07)
[2019-07-23] MEDS ORDERED: Cefuroxime 250 MG Tab PO ONE (15:24)
== END 2019-07-23 15:25 | disposition home or self-care (01) ==
LOC: CC.ACU 13:06 → CC.FCMC 13:06 → CC.MS 15:12 → UNDOADMOB 15:12 → CC.MS 16:25
PROVIDERS: ADMIT Family Medicine; ATTEND Family Medicine
DX: N12 Tubulo-interstitial nephritis, not specified as acute or chronic (principal); R00.0 Tachycardia, unspecified; E86.0 Dehydration
CPT/HCPCS: 36415; 74177; 80048; 80053; 81001; 84703; 85025; 86140; 87070; 87086; 87210; 96361; 96374; 96375; 96376; A9270-GY; G0378; J0696; J1885; J2270; J2405; J7030; Q9967

== ENCOUNTER 2020-03-18 05:46 | Emergency (ER) | payer SELFPAY ==
[2020-03-18 06:07] VITALS: BP 123/85; PULSE 96
--- NOTE | 2020-03-18 06:25 | EDM.PDOC ---
ED HPI GENERAL MEDICAL PROBLEM - General Chief Complaint: Allergic Reaction Stated Complaint: allergy/rash Time Seen by Provider: 03/18/20 06:10 Source of Information: Reports: Patient History Limitations: Reports: Language Barrier - History of Present Illness INITIAL COMMENTS - FREE TEXT/NARRATIVE: Bettye is a 29 year old who presents to ER with hives. States ham and turkey 3 days ago and has had similar issues with those in the past. Noted rash on hands and legs and has been taking Claritin without much improvement. States hands itch. Has a mild sore throat. No shortness of breath or wheezing. Speaks little Bengali but does relate to questions on phone translation. Onset: Gradual Duration: Day(s): Location: Reports: Generalized Quality: Reports: Other (itch) Severity: Mild Associated Symptoms: Reports: Other (sore throat) Treatments PATCH DRILLER: Reports: Acetaminophen, NSAIDS Throat Pain Score (Numeric/FACES): 5 - Related Data Allergies Allergy/AdvReac Type Severity Reaction Status Date / Time turkey Allergy Cannot Verified 03/18/20 05:47 Remember ham Allergy Cannot Uncoded 07/21/19 14:53 Remember Home Meds: Home Meds . 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 One child was born premature. She also had a seizure while she was with her last and preclampsia. 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 Denies: Ear Pain, Rhinitis, Sinus Problem, Vertigo Respiratory: Denies: Shortness of Breath, Cough Cardiovascular: Denies: Chest Pain, Edema, Lightheadedness Endocrine: Denies: Fatigue GI/Abdominal: Denies: Abdominal Pain, Nausea, Vomiting : Reports: No Symptoms Musculoskeletal: Reports: No Symptoms Skin: Reports: Urticaria Neurological: Reports: No Symptoms ED EXAM GENERAL NO PERIP PULSE - Physical Exam Exam: See Below Exam Limited By: Language Barrier General Appearance: Alert, WD/WN, No Apparent Distress Ears: Normal External Exam, Normal TMs Nose: Normal Inspection, Normal Mucosa, No Blood Throat/Mouth: Normal Inspection, Normal Oropharynx Head: Normocephalic Neck: Normal Inspection, Supple, Non-Tender Respiratory/Chest: No Respiratory Distress, Lungs Clear, Normal Breath Sounds Cardiovascular: Regular Rate, Rhythm Extremities: Normal Inspection, Normal Capillary Refill Neurological: Alert, Oriented Skin Exam: Other (has hives to hands and knees) Course - Vital Signs Last Recorded V/S: Last Vital Signs Temp 98.1 F 03/18/20 05:53 Pulse 96 03/18/20 05:53 Resp 14 03/18/20 05:53 BP 123/85 03/18/20 05:53 Pulse Ox 99 03/18/20 05:53 - Orders/Labs/Meds Orders: Active Orders 24 hr Category Date Time Status methylPREDNISolone Sod Succ [Solu-MEDROL] Med 03/18/20 06:18 Once 125 mg IVPUSH NOW ONE Medication Orders Methylprednisolone Sodium Succinate (Solu-Medrol) 125 mg IVPUSH NOW ONE Stop: 03/18/20 06:19 Meds: Medications Generic Name Dose Route Start Last Admin Trade Name Selena PRN Reason Stop Dose Admin Methylprednisolone Sodium Succinate 125 mg 03/18/20 06:18 Solu-Medrol IVPUSH 03/18/20 06:19 NOW ONE Departure - Departure Time of Disposition: 06:24 Disposition: Home, Self-Care 01 Condition: Good Clinical Impression: Allergic reaction - Discharge Information *PRESCRIPTION DRUG MONITORING PROGRAM REVIEWED*: No *COPY OF PRESCRIPTION DRUG MONITORING REPORT IN PATIENT KRYSTIAN: No Instructions: Allergies, Adult, [id number] Referrals: PCP,None [Primary Care Provider] - Additional Instructions: 1. Rash 2. Continue Claritin 3. Prednisone 20 mg~ 2 tabs daily for 4 days, start tomorrow 4. Follow up in clinic if persistent symptoms Sepsis Event Note (ED) - Evaluation Sepsis Screening Result: No Definite Risk - Focused Exam Vital Signs: Vital Signs Temp Pulse Resp BP Pulse Ox 03/18/20 05:53 98.1 F 96 14 123/85 99 - My Orders Last 24 Hours: My Active Orders 03/18/20 06:18 methylPREDNISolone Sod Succ [Solu-MEDROL] 125 mg IVPUSH NOW ONE - Assessment/Plan Last 24 Hours: My Active Orders 03/18/20 06:18 methylPREDNISolone Sod Succ [Solu-MEDROL] 125 mg IVPUSH NOW ONE
[2020-03-18] MEDS: methylPREDNISolone Sodium Succinate 125 MG/2 ML SDV IM STA (06:28)
[2020-03-18] MEDS: methylPREDNISolone Sodium Succinate 125 MG/2 ML SDV IVPUSH ONE (06:30)
== END 2020-03-18 06:35 | disposition home or self-care (01) ==
LOC: CC.ED 05:46
DX: L50.0 Allergic urticaria (principal); Z91.018 Allergy to other foods
CPT/HCPCS: 96372; 99282; J2930

== ENCOUNTER 2021-06-08 06:20 | Emergency (ER) | payer SELFPAY ==
[2021-06-08 06:41] VITALS: BP 131/79; PULSE 77
[2021-06-08] MEDS ORDERED: Nitrofurantoin Monohydrate/Macrocrystalline 100 MG Cap PO ONE (06:53)
== END 2021-06-08 07:05 | disposition home or self-care (01) ==
LOC: CC.ED 06:20
DX: N30.01 Acute cystitis with hematuria (principal); Z91.048 Other nonmedicinal substance allergy status; Z79.899 Other long term (current) drug therapy
CPT/HCPCS: 81001; 87086; 99283; A9270-GY